=== PATIENT | female | born 1970 | race Two or more races ===

== ENCOUNTER 2024-07-28 04:04 | Emergency (ER) | payer MEDICAID, SELFPAY ==
[2024-07-28 04:05] VITALS: BMI 29.4
[2024-07-28 04:12] VITALS: BP 163/102; PULSE 68; RESP 18; TEMP 36.8; O2SAT 99
--- NOTE | 2024-07-28 04:12 | EDNOTE_ITS ---
ED Abdominal Pain RME/HPI General Chief Complaint: Abdominal Pain Stated complaint: ABD PAIN / DIARRHEA X 2DAY Time seen by provider: 07/28/24 04:07 Arrival date/time: 07/28/24 04:04 RME / HPI RME / HPI narrative: This section includes all my notes and documentations, including HPI, PE, and ED course. Niranjan Vasquez MD HPI: 53yo female with a history of cholecystectomy, HTN presents to the ED for a chief complaint of epigastric pain x few days. No radiation or migration. Patient reports associated decreased appetite. Patient denies any N/V, fever, chills or any other associated symptoms. No other complaints reported. ROS: All negative except as documented in HPI. Physical Exam: General: Alert and oriented. No acute distress when remaining still. Eyes: Conjunctivae and lids clear. ENT: No nasal congestion. Neck: Supple. Heart: RRR. Lungs: No respiratory distress. Good air movement. No rhonchi, wheezing, rales. Abdomen: Soft with mild epigastric tenderness. Skin: Warm and dry. Neuro: Alert and oriented X 3. I reviewed all diagnostic test results. My interpretation of the KUB is NAD. Blood tests and urine tests unremarkable. At this point, diagnoses include Gastritis. Treatment here included IVF, Zofran, Famotidine, and Protonix. Significant improvement noted. Recommended more outpatient workup. Based on my best medical judgment, made decision no further evaluation or treatment indicated at this time. Patient understands and agrees to the discharge instructions customized and printed, see below. Discharge instructions from Dr. Vasquez: ?After evaluation, your symptoms are due to stomach ulcer (see attached handout).? ?To help heal the ulcer, take Omeprazole 40 mg every morning and Famotidine 40 mg at bedtime for 7 days then as needed. ?Zofran for nausea/vomiting.? Clear liquid diet for 24 hours.? Then slowly advance diet as tolerated. ?Avoid food and beverages that can trigger and worsen ulcers.? See attached handout. ?See a private doctor on 07/29/2024. Ask to review all test results and official radiology reports, to make sure you receive all necessary follow-ups and monitoring. To make sure there is no serious intra-abdominal condition, ask for help with mo re investigation not available here in the ER.? Such as EGD or scoping the stomach, colonoscopy or scoping the colon, and referral to see gas engine repairer. ?Seek immediate medical care with worsening or with any concerns. Niranjan Vasquez MD Related Data Previous Rx's ?Medication ?Instructions ?Recorded famotidine 40 mg tablet 40 mg PO .bedtime #30 tabs 0 07/28/24 omeprazole 40 mg capsule,delayed 40 mg PO QDAY #30 cap s 07/28/24 release ondansetron 4 mg disintegrating 4 mg PO TID PRN nausea and 07/28/24 tablet vomiting 30 days #10 tabs Allergies Allergy/AdvReac Type Severity Reaction Status Date / Time NKA* Allergy Uncoded 07/19/14 15:40 Review of Systems Review of Systems Systems Reviewed: All systems reviewed, normal except as documented Past Medical History Social History SMOKING STATUS: Never smoker ED Exam Narrative Physical exam: As noted in HPI. Course Quality Measures none Orders Category Date Time Status Saline [Insert IV] NOW Care 07/28/24 04:15 Completed KUB [XR abdomen 1V] Stat Exams 07/28/24 04:16 Completed Amylase Stat Lab 07/28/24 04:27 Completed Bilirubin,Direct Stat Lab 07/28/24 04:27 Completed CBC Stat Lab 07/28/24 04:27 Completed CMP [Comprehensive Metabolic Panel] Stat Lab 07/28/24 04:27 Completed HCG Qualitative,Urine Stat Lab 07/28/24 04:26 Completed Lipase Stat Lab 07/28/24 04:27 Completed Magnesium Stat Lab 07/28/24 04:27 Completed UA, C/S IF [Urinalysis, C/S if Indicated] Stat Lab 07/28/24 04:26 Completed Famotidine Inj [Pepcid Inj] Med 07/28/24 04:15 Discontinued 20 mg IVP X1 ONE Ondansetron Inj [Zofran Inj] Med 07/28/24 04:15 Discontinued 4 mg IV X1 ONE Pantoprazole [Protonix] Med 07/28/24 04:15 Discontinued 40 mg PO X1 ONE Sodium Chloride 0.9% 1000 ml [Ns] 1,000 ml Med 07/28/24 04:15 Discontinued IV 999 mls/hr Vital Signs Vital signs: Vital Signs Temperature 98.3 F 07/28/24 04:12 Pulse Rate 68 07/28/24 04:12 Respiratory Rate 18 07/28/24 04:12 Blood Pressure 163/102 H 07/28/24 04:12 Pulse Oximetry (%) 99 07/28/24 04:12 Oxygen Delivery Method Room Air 07/28/24 04:12 Abdominal Pain MDM MDM Narrative MDM Narrative:: Scribe Attestation: 07/28/24 Ladonna Jones am scribing for and in the presence of Dr. Vasquez. Patient data External records reviewed:: [facility] previous records (Per chart review, patient was seen here on 08/20/23 for generalized weakness.) Clinical information provided by:: patient Social determinants that could affect healthcare access:: none Patient has the following chronic illnesses:: HTN How is presenting disease/condition affected by chronic disease/condition?: uneffected by Evaluation data The following diagnostics were reviewed and interpreted by me:: lab results and radiology exam(s) Lab and/or radiology exams considered but not ordered:: none Interpretation Summary: Normal diagnostics Medications / Prescriptions Medications or Prescriptions considered but not ordered:: none Medication administrations:: Medication Administration History Discontinued Medications Famotidine (Famotidine Inj 10 Mg/Ml Vial 2 Ml) 20 mg IVP X1 ONE Stop: 07/28/24 04:16 Last Admin: 07/28/24 04:45 Dose: 20 mg Documented By: EF Sodium Chloride (Ns) 1,000 mls @ 999 mls/hr IV .Q1H1M ONE Stop: 07/28/24 05:15 Last Infusion: 07/28/24 05:18 Dose: Infused Documented By: Admin: 07/28/24 04:46 Dose: 999 mls/hr Documented By: EF Ondansetron HCl (Ondansetron Inj 2 Mg/Ml Inj 2 Ml) 4 mg IV X1 ONE; Protocol Stop: 07/28/24 04:16 Last Admin: 07/28/24 04:45 Dose: 4 mg Documented By: EF Pantoprazole Sodium (Pantoprazole 40 Mg Tablet) 40 mg PO X1 ONE Stop: 07/28/24 04:16 Last Admin: 07/28/24 04:45 Dose: 40 mg Documented By: EF IVF, Zofran, Famotidine, Protonix Consultations Consultation(s) initiated? (list below): No Diagnosis Differential diagnosis abdominal pain: calculus of kidney, constipation, gastroenteritis, pancreatitis and other (gastritis, PUD, GERD, biliary colic) Most likely diagnosis given after review of the tests above:: gastritis Admission Indicated Admission indicated?: not indicated Explain why admission is indicated or not indicated:: With significant improvement, there was no indication for admission Admission Request Was there a request for admission?: No Disposition Plan Disposition Plan: Discharge Discharge Attestation Discharge Attestation: The patient and all family members were given an opportunity to ask questions and understood the discharge instructions. Discharge instructions specifically effects, indications for sooner follow up or return to the emergency department, and the expected course of current diagnosis. Patient condition: Stable Discharge Plan Plan Patient Disposition: HOME (Self Care) Prescriptions/Referrals Prescriptions/Med Rec: New famotidine 40 mg tablet 40 mg PO .bedtime Qty: 30 0RF omeprazole 40 mg capsule,delayed release(DR/EC) 40 mg PO QDAY Qty: 30 0RF ondansetron 4 mg tablet,disintegrating 4 mg PO TID PRN (Reason: nausea and vomiting) 30 Days Qty: 10 0RF Referrals: Temporary Provider,ED [Physician] - In 1 week Problem List Clinical Impression: Stomach ulcer Patient/Caregiver Discharge Instructions Discharge Activity: activity as tolerated Education Materials: ED PEPTIC ULCER vs GASTRITIS Additional Instructions: Discharge instructions from Dr. Vasquez: ?After evaluation, your symptoms are due to stomach ulcer (see attached handout).? ?To help heal the ulcer, take Omeprazole 40 mg every morning and Famotidine 40 mg at bedtime for 7 days then as needed. ?Zofran for nausea/vomiting.? Clear liquid diet for 24 hours.? Then slowly advance diet as tolerated. ?Avoid food and beverages that can trigger and worsen ulcers.? See attached handout. ?See a private doctor on 07/29/2024. Ask to review all test results and official radiology reports, to make sure you receive all necessary follow-ups and monitoring. To make sure there is no serious intra-abdominal condition, ask for help with more investigation not available here in the ER.? Such as EGD or scoping the stomach, colonoscopy or scoping the colon, and referral to see gas engine repairer. ?Seek immediate medical care with worsening or with any concerns. Instrucciones de adri del Dr. Vasquez: ?Despu?s de la evaluaci?n, dominique s?ntomas se deben a rima ?lcera estomacal (juan m folleto adjunto). ?Para ayudar a cicatrizar la ?lcera, tome omeprazol 40 mg todas las ma?anas y famotidina 40 mg antes de acostarse dennis 7 d?as y, posteriormente, seg?n sea necesario. ?Zofran para n?useas y v?mitos. Dieta l?quida dennis 24 horas. Luego, aumente gradualmente la dieta seg?n la tolerancia. ?Evite alimentos y bebidas que puedan desencadenar y empeorar las ?lceras. Juan M folleto adjunto. ?Consulte con un m?dico particular el 02/21/2025. Solicite la revisi?n de todos los resultados de las pruebas y los informes radiol?gicos oficiales para asegurarse de recibir todos los seguimientos y la monitorizaci?n necesarios. Para asegurarse de que no haya rima afecci?n intraabdominal grave, solicite ayuda con otras pruebas que no est?n disponibles en urgencias, [place] rima endoscopia estomacal (EGD) o rima endoscopia g?strica, rima colonoscopia o rima endoscopia de colon, y la derivaci?n a un gastroenter?logo. ?Busque atenci?n m?dica inmediata si presenta empeoramiento o cualquier inquietud. Print Language: Japanese Stand Alone Forms: Swathi Award Info., Patient Portal Info Letter
--- NOTE | 2024-07-28 04:16 | XR_ITS ---
Examination: Abdomen AP single view Technique: AP portable supine abdomen, single view Exam date and time: July 28, 2024 at 0520 hrs. Indications: Abdominal pain diarrhea beginning 2 days ago Findings: Moderate stool throughout the colon No obstruction No free air Intact osseous structures Impression: Moderately stool throughout the colon, no obstruction
[2024-07-28 04:34] LABS: Collection Type, Urine Clean Catch
[2024-07-28 04:38] LABS: Bilirubin,Urine Negative (Negative); Blood,Urine Negative (Negative); Clarity,Urine Clear (Clear/Hazy); Color,Urine Colorless (Lt Yel-Yel); Culture Indicated,Urine Not Indicated; Glucose, Urine Negative (Negative); Ketones,Urine Negative (Negative); Leukocyte Esterase,Urine Negative (Negative); Nitrite,Urine Negative (Negative); PH,Urine 7.5 (5.0-7.0); Protein,Urine Negative (Neg - Trace); RBC,Urine < 1 /hpf (0-3); Specific Gravity,Urine 1.006 (1.001-1.035); Squamous Epithelial Cell,Urine 5 /hpf (0-5); Urobilinogen,Urine Negative mg/dL (0.0-1.0); WBC,Urine 1 /hpf (0-5)
[2024-07-28 04:38] LABS: Basophils % (Auto) 0 % (0-2.5); Eosinophils # (Auto) 0.1 Thou/mm3 (0.0-0.5); Eosinophils % (Auto) 1 % (0-10); Hematocrit 34.3 % (36.0-46.0); Hemoglobin 11.2 g/dL (12.0-16.0); Immature Granulocytes % (Auto) 0 % (0-0); Lymphocytes # (Auto) 2.6 Thou/mm3 (1.0-4.8); Lymphocytes % (Auto) 55 % (10-50); Mean Corpuscular HGB Conc 32.7 g/dl (31.0-37.0); Mean Corpuscular Hemoglobin 24.5 pg (25.0-35.0); Mean Corpuscular Volume 75 fL (80-100); Monocytes # (Auto) 0.4 Thou/mm3 (0.0-0.8); Monocytes % (Auto) 9 % (0-12); Neutrophils # (Auto) 1.6 Thou/mm3 (1.8-7.7); Neutrophils % (Auto) 35 % (37-80); Nucleated Red Blood Cell % 0 /100 WBC (0); Platelet Count 274 Thou/mm3 (140-440); RDW Standard Deviation 39.8 fL (36.4-46.3); Red Blood Count 4.57 Miln/mm3 (4.00-5.20); White Blood Count 4.7 Thou/mm3 (3.6-11.0)
[2024-07-28] MEDS: PANTOPRAZOLE 40 MG TABLET PO (04:45)
[2024-07-28] MEDS: FAMOTIDINE INJ 10 MG/ML VIAL 2 ML 20 MG IVP (04:45)
[2024-07-28] MEDS: ONDANSETRON INJ 2 MG/ML INJ 2 ML 4 MG IV (04:45)
[2024-07-28 04:46] LABS: HCG Qualitative,Urine Negative
[2024-07-28] MEDS: SODIUM CHLORIDE 0.9% 1000 ML 1,000 ML 999 ML IV (04:46)
[2024-07-28 05:18] VITALS: BP 138/82; PULSE 58; RESP 18; TEMP 36.4; O2SAT 100
[2024-07-28 05:23] LABS: Alanine Aminotransferase 17 U/L (10-49); Albumin, Serum 4.2 gm/dL (3.5-5.0); Albumin/Globulin Ratio 1.7 (1.2-2.2); Alkaline Phosphatase 112 U/L (46-116); Amylase 55 U/L (30-118); Anion Gap 6 (7-16); Aspartate Amino Transferase 20 U/L (0-34); BUN/Creatinine Ratio 12 Ratio (12-20); Bilirubin,Direct 0.2 mg/dL (0.0-0.3); Bilirubin,Total 0.7 mg/dL (0.3-1.2); Blood Urea Nitrogen 7 mg/dL (9-23); Calcium 8.8 mg/dL (8.3-10.6); Calcium (Corrected) 8.8 mg/dL (8.5-10.1); Carbon Dioxide 28.4 mMol/L (20.0-31.0); Chloride 105 mMol/L (98-107); Creatinine (Component) 0.6 mg/dL (0.6-1.3); Estimated Creatinine Clearance 103.8 mL/min (>60); Globulin 2.5 gm/dL (2.3-3.5); Glucose 95 mg/dL (74-106); Lipase 46 U/L (12-53); Magnesium 1.9 mg/dL (1.6-2.6); Osmolality,Calculated 275 (275-295); Potassium 3.6 mMol/L (3.4-5.1); Sodium 139 mMol/L (136-145); Total Protein 6.7 gm/dL (5.7-8.2); eGFR > 60 See Note
[2024-07-28 06:04] VITALS: BP 141/82; PULSE 60; RESP 17; TEMP 37.1; O2SAT 100
== END 2024-07-28 06:05 | disposition home or self-care (01) ==
LOC: SERX 06:39
PROVIDERS: Emergency Provider Emergency Medicine
DX: K25.9 Gastric ulcer, unspecified as acute or chronic, without hemorrhage or perforation (principal); I10 Essential (primary) hypertension; Z90.49 Acquired absence of other specified parts of digestive tract
CPT/HCPCS: 36415; 74018; 80053; 81001; 81025; 82150; 82248; 83690; 83735; 85025; 96361; 96374; 96375; 99284; J2405; J3490; J7030; A9270